=== PATIENT | male | born 1970 | race Caucasian/White ===

== ENCOUNTER → 2020-08-03 | Outpatient (CLI) | payer BC, OTHER ==
[~2020-08-03] MED LIST: IBUPROFEN600 MG PO; NORCO 5-325 TA1 EACH PO
[2020-08-03 08:14] LABS: HEMOGLOBIN 12.9 gm/dl (14.0-17.5); RED BLOOD COUNT 4.81 M/UL (4.20-5.50); WHITE BLOOD COUNT 7.6 K/UL (4.5-11.0)
[2020-08-03 08:35] LABS: BUN/CREATININE RATIO 22 (0-10)
== END ==
LOC: LAB 07:23
PROVIDERS: Internal Medicine
DX: E11.9 Type 2 diabetes mellitus without complications (principal); E78.5 Hyperlipidemia, unspecified; E53.8 Deficiency of other specified B group vitamins; E55.9 Vitamin D deficiency, unspecified; I10 Essential (primary) hypertension
CPT/HCPCS: 36415; 80053; 80061; 81001; 82043; 82607; 83036; 84443; 85025

== ENCOUNTER → 2020-09-05 | Outpatient (CLI) | payer BC, OTHER | LOC: RAD 16:22 | DX: M25.512 Pain in left shoulder (principal); W19.XXXA Unspecified fall, initial encounter | CPT/HCPCS: 73030 ==

== ENCOUNTER → 2020-09-21 | Outpatient (CLI) | payer BC, OTHER | LOC: MRI 10:15 | DX: Z53.9 Procedure and treatment not carried out, unspecified reason (principal); M25.60 Stiffness of unspecified joint, not elsewhere classified; M25.512 Pain in left shoulder; R53.1 Weakness; R29.898 Other symptoms and signs involving the musculoskeletal system ==

== ENCOUNTER 2021-04-07 02:54 | Emergency (ER) | payer BC ==
[2021-04-07] MEDS ORDERED: CYCLOBENZAPRINE10 MG PO (08:14)
== END 2021-04-07 09:35 | disposition home or self-care (01) ==
LOC: ER1 02:54
DX: S39.82XA Other specified injuries of lower back, initial encounter (principal); I25.10 Atherosclerotic heart disease of native coronary artery without angina pectoris; E11.9 Type 2 diabetes mellitus without complications; X50.0XXA Overexertion from strenuous movement or load, initial encounter
CPT/HCPCS: 72131; 96372; 99283; J1885

== ENCOUNTER → 2021-06-14 | Outpatient (CLI) | payer BC ==
[~2021-06-14] MED LIST changes: +CYCLOBENZAPRINE10 MG PO
== END ==
LOC: LAB 10:13
DX: E11.65 Type 2 diabetes mellitus with hyperglycemia (principal)
CPT/HCPCS: 36415; 83036

== ENCOUNTER → 2021-08-08 | Outpatient (CLI) | payer BC | LOC: CT 09:33 | DX: R10.31 Right lower quadrant pain (principal); R10.32 Left lower quadrant pain; K76.0 Fatty (change of) liver, not elsewhere classified | CPT/HCPCS: 36415; 82565; 84520; Q9967 ==

== ENCOUNTER → 2021-09-03 | Day surgery (SDC) | payer BC ==
[~2021-09-03] MED LIST changes: +ACTOS30 MG PO; +BASAGLAR K100 UNIT/1 SQ; +COLACE100 MG PO; +GLIPIZIDE ER5 MG PO; +HYDROCODON-ACE1 EAC2 PO; +LIPITOR40 MG PO; +LOPRESSOR 25 MG25 MG PO; +METFORMIN HCL1000 M1 PO; +MIRAPEX1 MG PO; +NORVASC5 MG PO; +TRULICITY3 MG/0.5 M SQ; +VENTOLIN/PROVE0.5 ML INH; +VITAMIN D21250 MCG PO; +XIGDUO XR 10 M1 EACH PO; +ZOLOFT50 MG PO
== END | disposition home or self-care (01) ==
LOC: OR 07:30
DX: K40.20 Bilateral inguinal hernia, without obstruction or gangrene, not specified as recurrent (principal); I10 Essential (primary) hypertension; E78.5 Hyperlipidemia, unspecified; E11.42 Type 2 diabetes mellitus with diabetic polyneuropathy; J40 Bronchitis, not specified as acute or chronic; M19.90 Unspecified osteoarthritis, unspecified site; D64.9 Anemia, unspecified; F41.9 Anxiety disorder, unspecified; F32.A Depression, unspecified; E66.01 Morbid (severe) obesity due to excess calories; Z68.41 Body mass index [BMI] 40.0-44.9, adult; Z79.4 Long term (current) use of insulin; Z79.1 Long term (current) use of non-steroidal anti-inflammatories (NSAID); Z79.899 Other long term (current) drug therapy
CPT/HCPCS: 82962; C1781; J0690; J1100; J1170; J1885; J2001; J2250; J2370; J2405; J2704; J2765; J3010; J7120

== ENCOUNTER → 2021-10-15 | Outpatient (CLI) | payer BC ==
[~2021-10-15] MED LIST changes: +IBU800 MG PO; +ONDANSETRON ODT8 MG SL; -VITAMIN D21250 MCG PO; +VITAMIN D3125 MC1 PO
[2021-10-15 09:23] LABS: HEMOGLOBIN 14.6 gm/dl (14.0-17.5); RED BLOOD COUNT 5.5 M/UL (4.20-5.50); WHITE BLOOD COUNT 8.2 K/UL (4.5-11.0)
[2021-10-15 09:55] LABS: BUN/CREATININE RATIO 15 (0-10)
== END ==
LOC: OPSV2 10-14 08:00
PROVIDERS: Orthopaedic Surgery
DX: Z01.818 Encounter for other preprocedural examination (principal); M75.102 Unspecified rotator cuff tear or rupture of left shoulder, not specified as traumatic; Z20.822 Contact with and (suspected) exposure to COVID-19; I10 Essential (primary) hypertension; E11.9 Type 2 diabetes mellitus without complications; I25.10 Atherosclerotic heart disease of native coronary artery without angina pectoris; I34.1 Nonrheumatic mitral (valve) prolapse; R94.31 Abnormal electrocardiogram [ECG] [EKG]; I44.4 Left anterior fascicular block; Z91.040 Latex allergy status
CPT/HCPCS: 36415; 71046; 80048; 85027; 93005